=== PATIENT | female | born 1935 | race Caucasian/White ===

== ENCOUNTER 2023-01-09 08:24 | Emergency (ER) | payer MEDICARE ==
[~2023-01-09] VITALS: Ht 165.1 cm; Wt 61.8 kg
[2023-01-09 08:29] VITALS: TEMP 97.8
[2023-01-09] MEDS ORDERED: bacitracin 15gm ointment TP ONE (09:15)
[2023-01-09] MEDS ORDERED: TETanus/Pertussis (Acell)/Diphther VAC/PF (Tdap-Adult) 0.5ml syringe IMVAC ONE (09:15)
[2023-01-09 10:16] VITALS: BP 176/81; PULSE 71; O2SAT 100
[2023-01-09 10:17] VITALS: RESP 16
== END 2023-01-09 10:20 | disposition home or self-care (01) ==
LOC: EDBD 08:25 → ER 08:25
DX: S00.83XA Contusion of other part of head, initial encounter (principal); S60.511A Abrasion of right hand, initial encounter; W19.XXXA Unspecified fall, initial encounter; Y93.89 Activity, other specified; Y92.89 Other specified places as the place of occurrence of the external cause; Y99.8 Other external cause status
CPT/HCPCS: 90471; 90715; 93005; 99284

== ENCOUNTER 2023-08-31 20:04 | Observation (INO) | payer MEDICARE ==
[~2023-08-31] VITALS: Ht 165.1 cm; Wt 52.8 kg
[2023-08-31 21:10] LABS: BASOPHILS % (AUTO) 0.3 % (0-1); EOSINOPHILS % (AUTO) 0.3 % (0-6); HEMATOCRIT 34.3 % (35.0-45.0); HEMOGLOBIN 11.4 g/dl (12.0-16.0); LYMPHOCYTES # (AUTO) 1.9 X10'3 (1.1-4.8); LYMPHOCYTES % (AUTO) 19.3 % (21-51); MEAN CORPUSCULAR HEMOGLOBIN 31.2 PG (27.0-31.0); MEAN CORPUSCULAR HGB CONC 33.1 g/dL (33.0-36.5); MEAN CORPUSCULAR VOLUME 94.1 FL (78-98); MEAN PLATELET VOLUME 7.6 FL (7.4-10.4); MONOCYTES # (AUTO) 0.9 X10'3 (0-0.9); MONOCYTES % (AUTO) 8.9 % (2-12); NEUTROPHILS # (AUTO) 6.9 X10'3 (1.8-7.7); NEUTROPHILS % (AUTO) 71.2 % (42-75); PLATELET COUNT 169 X10'3 (140-440); RED BLOOD COUNT 3.65 X10'6 (4.20-5.60); WHITE BLOOD COUNT 9.7 X10'3 (4.5-11.0)
[2023-08-31] MEDS: acetaminophen 325mg tablet PO ONE (21:21)
[2023-08-31 21:33] LABS: ALANINE AMINOTRANSFERASE 11 U/L (12-78); ALBUMIN/GLOBULIN RATIO 0.6 (1.1-1.5); ALKALINE PHOSPHATASE 79 IU/L (46-116); ANION GAP 11 (8-16); ASPARTATE AMINO TRANSFERASE 18 U/L (10-37); BILIRUBIN,TOTAL 0.5 MG/DL (0.1-1.0); BLOOD UREA NITROGEN 21 MG/DL (7-18); CALCIUM 8.7 MG/DL (8.5-10.1); CHLORIDE 105 MMOL/L (99-107); CREATININE 1.05 MG/DL (0.40-0.90); GLUCOSE 129 MG/DL (70-104); LIPASE 67 U/L (16-77); POTASSIUM 4.1 MMOL/L (3.5-5.1); SODIUM 139 MMOL/L (135-145); TOTAL CARBON DIOXIDE 23.5 MMOL/L (24-32); TOTAL PROTEIN 7.8 G/DL (6.4-8.2); eCRCL 31 ML/MIN; eGFR 49 ML/MIN
[2023-08-31 22:31] LABS: BILIRUBIN,URINE NEGATIVE (Neg); CLARITY,URINE CLEAR (Clear); COLOR,URINE YELLOW (Yellow); GLUCOSE, URINE NEGATIVE (Neg); KETONES,URINE NEGATIVE (Neg); LEUKOCYTE ESTERASE ,URINE NEGATIVE (Neg); NITRITES, URINE NEGATIVE (Neg); OCCULT BLOOD,URINE SMALL (Neg); PROTEIN,URINE 30 mg/dl (Neg); UROBILINOGEN,URINE 0.2 E.U/dL (0.2-1.0)
[2023-08-31 22:40] LABS: UA COLLECTION TYPE STRAIGHT CATH
[2023-08-31 22:42] LABS: SQUAMOUS EPITHELIAL CELL,UR NONE SEEN /LPF (FEW); WBC,URINE 0-4 /HPF (0-4)
[2023-08-31 22:43] LABS: BACTERIA,URINE FEW /HPF (Neg)
[2023-08-31] MEDS ORDERED: iohexol 350MG/ML 100ml bottle IV ONE (22:56)
[2023-09-01] MEDS: lactulose 20gm/30ml cup PO ONE
[2023-09-01] MEDS: magnesium citrate 296ml oral solution PO ONE
[2023-09-01 00:26] LABS: PRO BRAIN NATRIURETIC PEPTIDE 430 PG/ML (0-450)
[2023-09-01] MEDS: CefTRIAXone/D5W-Rocephin 1gm 50 ML IV ONE (00:44)
[2023-09-01] MEDS ORDERED: ondansetron/PF 4mg/2ml inj IV PRN (00:45)
[2023-09-01] MEDS ORDERED: morphine 2 MG/ML inj. syringe IV PRN (00:45)
[2023-09-01] MEDS: azithromycin/NS 500mg/250ml 250 ML IV ONE (00:48)
[2023-09-01] MEDS: normal saline 500ml IV soln 500 ML IV ONE (01:00)
[2023-09-01] MEDS ORDERED: acetaminophen 325mg tablet PO PRN (01:25)
[2023-09-01 03:50] VITALS: BP 161/66; PULSE 66; RESP 16; TEMP 97.5; O2SAT 98
[2023-09-01] MEDS ORDERED: ALEN70TA80 PO (04:30)
[2023-09-01] MEDS ORDERED: LEVO50TA8 PO (04:30)
[2023-09-01] MEDS ORDERED: DONE10TA44 PO (04:30)
[2023-09-01] MEDS ORDERED: FLUT15.87 (04:30)
[2023-09-01] MEDS ORDERED: LACT1CAP75 PO (05:02)
[2023-09-01] MEDS ORDERED: MULT-1074 PO (05:02)
[2023-09-01 06:00] VITALS: BP 120/66; PULSE 55; RESP 16; TEMP 97.7; O2SAT 98
[2023-09-01] MEDS ORDERED: bisacodyl 10mg suppository rectal RC PRN (07:10)
[2023-09-01 09:00] VITALS: RESP 16; O2SAT 98
[2023-09-01] MEDS: docusate sod 100mg capsule PO SCH (09:03)
[2023-09-01] MEDS: metroNIDAZOLE-Flagyl 500mg/NS 100 ML IV SCH (09:03)
[2023-09-01] MEDS: heparin, porcine 5000 units/ml vial SQ SCH (09:04)
[2023-09-01] MEDS: magnesium hydroxide 30ml (MOM) UD suspension PO PRN (09:04)
[2023-09-01] MEDS ORDERED: non-formulary drug (Alendronate Sodium 1 TAB) PO SCH (09:20)
[2023-09-01 10:00] VITALS: BP 158/74; PULSE 66; RESP 14; TEMP 97.8; O2SAT 97
[2023-09-01] MEDS: normal saline 1000ml 1,000 ML IV SCH (13:00)
[2023-09-01] MEDS: acetaminophen 325mg tablet PO PRN (14:53)
[2023-09-01] MEDS: lactose-reduced food (Ensure Enlive) - 237ml bottle PO SCH (17:49)
[2023-09-01 18:00] VITALS: BP 150/71; PULSE 69; RESP 15; TEMP 98.2; O2SAT 97
[2023-09-01] MEDS: polyethylene glycol 3350 17gm powd pack PO SCH (20:31)
[2023-09-01] MEDS: donepezil 5mg tablet PO SCH (20:32)
[2023-09-01] MEDS: morphine 2 MG/ML inj. syringe IV PRN (21:34)
[2023-09-01 22:00] VITALS: BP 138/50; PULSE 63; RESP 18; TEMP 98; O2SAT 98
[2023-09-02] MEDS: CefTRIAXone/D5W-Rocephin 1gm 50 ML IV SCH (00:20)
[2023-09-02] MEDS: azithromycin/NS 500mg/250ml 250 ML IV SCH (00:53)
[2023-09-02 06:00] VITALS: BP 150/66; PULSE 74; RESP 20; TEMP 98.9; O2SAT 96
[2023-09-02 07:04] LABS: BASOPHILS % (AUTO) 0.2 % (0-1); EOSINOPHILS % (AUTO) 0.4 % (0-6); HEMATOCRIT 30.3 % (35.0-45.0); HEMOGLOBIN 10.1 g/dl (12.0-16.0); LYMPHOCYTES # (AUTO) 1.6 X10'3 (1.1-4.8); LYMPHOCYTES % (AUTO) 17.2 % (21-51); MEAN CORPUSCULAR HEMOGLOBIN 31.3 PG (27.0-31.0); MEAN CORPUSCULAR HGB CONC 33.4 g/dL (33.0-36.5); MEAN CORPUSCULAR VOLUME 93.8 FL (78-98); MEAN PLATELET VOLUME 7.9 FL (7.4-10.4); MONOCYTES # (AUTO) 0.8 X10'3 (0-0.9); MONOCYTES % (AUTO) 8.5 % (2-12); NEUTROPHILS # (AUTO) 6.8 X10'3 (1.8-7.7); NEUTROPHILS % (AUTO) 73.7 % (42-75); PLATELET COUNT 181 X10'3 (140-440); RED BLOOD COUNT 3.24 X10'6 (4.20-5.60); RED CELL DISTRIBUTION WIDTH 15.2 % (11.5-14.5); WHITE BLOOD COUNT 9.2 X10'3 (4.5-11.0)
[2023-09-02 07:10] LABS: ALBUMIN 2.1 G/DL (3.4-5.0); ANION GAP 8 (8-16); BLOOD UREA NITROGEN 17 MG/DL (7-18); BUN/CREATININE RATIO 21.5 (10.0-20.0); CALCIUM 7.6 MG/DL (8.5-10.1); CHLORIDE 106 MMOL/L (99-107); CREATININE 0.79 MG/DL (0.40-0.90); GLUCOSE 107 MG/DL (70-104); POTASSIUM 4.2 MMOL/L (3.5-5.1); SODIUM 137 MMOL/L (135-145); TOTAL CARBON DIOXIDE 23.1 MMOL/L (24-32); eCRCL 41 ML/MIN; eGFR 69 ML/MIN
[2023-09-02 08:15] VITALS: RESP 16; O2SAT 96
[2023-09-02] MEDS: lactobacillus rhamnosus 10,000 MMU CELLS/CAPSULE PO SCH (08:27)
[2023-09-02] MEDS: levoTHYROXINE 25mcg tablet PO SCH (08:28)
[2023-09-02] MEDS: fluticasone nasal spray 16GM bottle NS SCH (08:28)
[2023-09-02] MEDS: multivitamins, therapeutics tablet PO SCH (08:28)
[2023-09-02] MEDS ORDERED: DOCU-148 PO (09:02)
[2023-09-02] MEDS ORDERED: MAGN400O6 PO (09:02)
[2023-09-02] MEDS ORDERED: CEFD300C3 PO (09:02)
[2023-09-02] MEDS ORDERED: POLY17PO10 PO (09:02)
[2023-09-02 10:00] VITALS: BP 137/67; PULSE 80; RESP 16; TEMP 98.5; O2SAT 94
== END 2023-09-02 10:45 | disposition home or self-care (01) ==
LOC: ER 20:05 → UNDOADMOB 09-01 00:46 → ED HOLD 09-01 00:46 → ORTHO 4S 09-01 03:49 → INTOOBSV 09-01 15:03 → OBSVTOIN 09-01 15:03 → UNDODISOB 09-02 10:45
PROVIDERS: ADMIT Student in an Organized Health Care Education/Training Program; ATTEND Family Medicine
DX: K57.92 Diverticulitis of intestine, part unspecified, without perforation or abscess without bleeding (principal); Z20.822 Contact with and (suspected) exposure to COVID-19; K59.00 Constipation, unspecified; J18.9 Pneumonia, unspecified organism; J90 Pleural effusion, not elsewhere classified; F03.90 Unspecified dementia, unspecified severity, without behavioral disturbance, psychotic disturbance, mood disturbance, and anxiety; E03.9 Hypothyroidism, unspecified; M81.0 Age-related osteoporosis without current pathological fracture; Z79.899 Other long term (current) drug therapy
CPT/HCPCS: 36415; 71045; 74177; 80048; 80053; 81001; 83605; 83690; 83880; 84145; 85025; 87040; 87081; 87502; 87503; 87811; 96372; 96374; 97161; 97530; 99285; G0378; J0456; J0696; J1644; J2270; J3490; J7030; J7040; Q9967; A4353